=== PATIENT | female | born 1975 | race Caucasian/White ===

== ENCOUNTER → 2023-09-14 | Outpatient (CLI) | payer BC, OTHER ==
--- NOTE | 2023-09-18 08:14 | MM ---
Reason for Exam: Screening (asymptomatic). Last mammogram was performed 13 year(s) and 11 month(s) ago. Patient History: Menarche at age 10. First Full-Term at age 22. Patient used Hormonal Contraceptives for 2 years. Risk Values: Kim 5 year model risk: 0.9%. NCI Lifetime model risk: 8.0%. Prior Study Comparison: 09/30/2009 Bilateral Screening Mammogram, [facility]. 10/12/2009 Left Diagnostic Mammogram, [facility]. Tissue Density: The breasts are heterogeneously dense, which may obscure small masses. Findings: Analyzed By CAD. 5 mm nodular density upper outer quadrant left breast approximately 10 cm from the nipple. Additional views are recommended. No right-sided nodularity seen. No suspicious microcalcifications identified. Overall Assessment: Incomplete: need additional imaging evaluation, BI-RAD 0 Management: Diagnostic Mammogram of the left breast. . Patient should continue monthly self-breast exams. A clinical breast exam by your physician is recommended on an annual basis. This exam should not preclude additional follow-up of suspicious palpable abnormalities. Note on Kim scores and lifetime risk: 1. A Kim score greater than 3% is considered moderate risk. If this is the case, consider specialist referral to assess eligibility for a risk reducing agent. 2. If overall lifetime risk for the development of breast cancer is 20% or higher, the patient may qualify for future screening with alternating mammogram and breast MRI. Electronically signed and approved by: Montana Dimas M.D. [facility]iolog[facility]
== END | disposition home or self-care (01) ==
LOC: RADMAMWWP 09:46
PROVIDERS: ATTEND Family Medicine
DX: Z12.31 Encounter for screening mammogram for malignant neoplasm of breast (principal)
CPT/HCPCS: 77067